=== PATIENT | male | born 1935 | race Caucasian/White ===

== ENCOUNTER 2017-12-26 15:55 | Inpatient (IN) | payer MEDICARE, MEDICAID ==
[~2017-12-26] VITALS: Ht 188 cm; Wt 96.0 kg
[~2017-12-26 15:55] MED LIST: ATENOLOL50 MG PO; COLACE CLEAR50 MG PO; ERIVEDGE150 MG PO; LASIX 20 MG20 MG/TAB PO; LISINOPRIL20 MG PO; MULTI COMPLETE PO; MULTI VIT PO; PAIN RELIEF EX500 MG PO; POLY-IRON150 MG PO; PRILOSEC20 MG/CAP PO; SOD CHLORIDE1 G2 PO; STOOL SOFTENER100 MG PO; TAMSULOSIN0.4 MG PO; TERAZOSIN5 MG PO; TRAMADOL HCL50 MG PO
--- NOTE | 2017-12-26 16:10 | NUR ---
PT & DAUGHTER UNSURE OF INFORMATION TO WHY PT IS HER IN THE ER. PT & DAUGHTER ASKED TO LET STAFF KNOW AFTER RAYNE SPEAKS TO HER SISTER.
--- NOTE | 2017-12-26 16:29 | NUR ---
PT TAKEN TO ER ROOM 6 BY PEREZ, DAUGHTER @ [facility].
--- NOTE | 2017-12-26 17:00 | NUR ---
PT ALERT TO PERSON AND PLACE AT THIS TIME.
--- NOTE | 2017-12-26 17:20 | NUR ---
URINE SAMPLE PROVIDED AND PT AND DAUGHTER AWARE OF PLAN OF CARE AND WAIT TIME. CALL SANCHES WITHIN REACH, WILL CONTINUE TO MONITOR.
--- NOTE | 2017-12-26 17:42 | NUR ---
IV FLUIDS INFUSING AND PT RESTING COMFORTABLY IN STRETCHER AND DENIES ANY NEEDS AT THIS TIME. CALL SANCHES WITHIN REACH.
[2017-12-26 17:47] LABS: HEMATOCRIT 39.1 % (39.0-50.0); HEMOGLOBIN 13.8 g/dl (14.0-18.0); IMMATURE GRANULOCYTES 0.6 % (0.0-1.0); MEAN CELL VOLUME 88.3 fL CALC (80.0-100.0); MEAN CORPUSCULAR HGB 31.2 pG CALC (26.0-32.0); MEAN CORPUSCULAR HGB CONC 35.3 g/L CALC (32.0-36.0); NEUT# 4.9 thou/uL (1.82-7.42); RED BLOOD COUNT 4.43 mill/uL (4.70-6.10); RED CELL DISTRI WIDTH 12.8 % (11.5-15.5)
[2017-12-26] MEDS ORDERED: VITAMIN B121000 MCG PO (17:55)
[2017-12-26] MEDS ORDERED: SODIUM BICARBI650 MG PO ×2 (17:55→17:58)
[2017-12-26 18:03] LABS: URINE BILIRUBIN - DIPSTICK NEGATIVE (NEGATIVE); URINE BLOOD DIPSTICK NEGATIVE (NEGATIVE); URINE COLOR YELLOW; URINE GLUCOSE - DIPSTICK NEGATIVE (NEGATIVE); URINE KETONE NEGATIVE (NEGATIVE); URINE LEUK ESTERASE NEGATIVE (NEGATIVE); URINE NITRITE - DIPSTICK NEGATIVE (Negative); URINE PH 6.5 (4.5-8.0); URINE PROTEIN - DIPSTICK NEGATIVE (NEG-TRACE); URINE SPECIFIC GRAVITY <=1.005; URINE UROBILINOGEN - DIPSTICK 0.2 E.U./dL (0.2)
[2017-12-26 18:07] LABS: ALKALINE PHOSPHATASE 66 u/l (38-126); BILIRUBIN, TOTAL 0.4 mg/dL (0.0-1.4); BUN 9 mg/dL (8-23); BUN/CREATININE RATIO 10 (12-20 (CALC)); CARBON DIOXIDE 27 mmol/l (22-30); CHLORIDE 86 mmol/l (95-108); GFR > 60 ML/MIN (>=60 (CALC)); GFR FOR AFR.AMER. > 60 ML/MIN (>=60 (CALC)); POTASSIUM 4.3 mmol/l (3.5-5.1); SGOT/AST 31 u/l (19-48); SGPT/ALT 36 u/l (11-66); TOTAL PROTEIN 6.4 g/dL (6.3-8.2)
[2017-12-26 18:09] LABS: ANION GAP 16 (6-22 (CALC)); SODIUM 125 mmol/l (137-146)
--- NOTE | 2017-12-26 18:25 | NUR ---
MD AT BEDSIDE TO DISCUSS RESULTS AND PLAN FOR ADMISSION.
[2017-12-26 18:42] LABS: URINE CLARITY CLEAR
--- NOTE | 2017-12-26 19:06 | NUR ---
REPORT CALLED TO OLEKSANDR ORTEZ. PT ROOM IS NOT READY AT THIS TIME, MS WILL CALL WHEN ROOM IS READY.
--- NOTE | 2017-12-26 19:07 | NUR ---
REPORT FOR TRANSFER GIVEN TO LUIS A, RN
[2017-12-26 19:50] VITALS: BP 167/74
--- NOTE | 2017-12-26 19:55 | NUR ---
PT.ARRIVED TO FLOOR VIA STRETCHER ACCOMPANIED BY AG OF ED. PT.SETTLED INTO BED AND ORIENTED TO CALL SYSTEM, LIGHTS, TV, ROOM AND V/S BEING ASSESSED AT THIS TIME.
[2017-12-26 20:50] VITALS: BP 149/59
[2017-12-26 22:57] LABS: ANION GAP 16 (6-22 (CALC)); BUN 8 mg/dL (8-23); BUN/CREATININE RATIO 9 (12-20 (CALC)); CARBON DIOXIDE 25 mmol/l (22-30); CHLORIDE 93 mmol/l (95-108); CREATININE 0.9 mg/dL (0.7-1.3); GFR > 60 ML/MIN (>=60 (CALC)); GFR FOR AFR.AMER. > 60 ML/MIN (>=60 (CALC)); POTASSIUM 3.8 mmol/l (3.5-5.1); SODIUM 130 mmol/l (137-146)
[2017-12-27] VITALS: BP 144/69
--- NOTE | 2017-12-27 | NUR ---
V/S ASSESSED AND URINAL EMPTIED OF 200CC OF CLEAR YELLOW URINE. PT.DENIES ANY NEEDS AND ANSWERS QUESTIONS APPROPRIATELY. ASSISTED PT.IN REPOSITIONING. CALL LIGHT IS W/IN REACH AND BED ALARM IS ON. I ENCOURAGED PT.TO CALL IF ANY NEEDS ARISE.
--- NOTE | 2017-12-27 04:08 | NUR ---
V/S ASSESSED AND URINAL EMPTIED OF 200CC OF CLEAR YELLOW URINE. PT.IS AWAKE UPON ENTERING ROOM, BUT REPORTS WANTING TO TRY AND GO BACK TO SLEEP. CALL LIGHT IS AT SIDE AND BED ALARM ON
[2017-12-27 04:35] VITALS: BP 133/68
[2017-12-27 05:31] LABS: HEMATOCRIT 38.7 % (39.0-50.0); HEMOGLOBIN 13.4 g/dl (14.0-18.0); MEAN CELL VOLUME 89.4 fL CALC (80.0-100.0); MEAN CORPUSCULAR HGB 30.9 pG CALC (26.0-32.0); MEAN CORPUSCULAR HGB CONC 34.6 g/L CALC (32.0-36.0); RED BLOOD COUNT 4.33 mill/uL (4.70-6.10); RED CELL DISTRI WIDTH 12.8 % (11.5-15.5)
[2017-12-27 05:41] LABS: ANION GAP 16 (6-22 (CALC)); BUN 10 mg/dL (8-23); BUN/CREATININE RATIO 11 (12-20 (CALC)); CARBON DIOXIDE 24 mmol/l (22-30); CHLORIDE 95 mmol/l (95-108); CREATININE 0.9 mg/dL (0.7-1.3); GFR > 60 ML/MIN (>=60 (CALC)); GFR FOR AFR.AMER. > 60 ML/MIN (>=60 (CALC)); MAGNESIUM 1.8 mg/dL (1.6-2.3); POTASSIUM 4.2 mmol/l (3.5-5.1); SODIUM 130 mmol/l (137-146)
[2017-12-27 08:00] VITALS: BP 138/66
--- NOTE | 2017-12-27 08:00 | NUR ---
RECEIVED PT IN HIGH FOWLERS POSITION, ALERT,BREATH SOUNDS ARE CLEAR, BILATERALLY, NO C/O SOB, HR IS REG, PULSES ARE STRONG X4,ABD IS SOFT WITH ACTIVE BS. IV SITE IS FREE FROM REDNESS OR EDEMA. TELE MONITOR IN PLACE.
[2017-12-27 12:00] VITALS: BP 96/53
--- NOTE | 2017-12-27 12:45 | NUR ---
PT IS RESTING IN BED WITH NO DISTRESS NOTED. IV SITE IS FREE FROM REDNESS OR EDEMA.
[2017-12-27 15:25] VITALS: BP 128/73
--- NOTE | 2017-12-27 16:30 | NUR ---
PT IS RELAXING IN BED WITH NO DISTRESS NOTED. IV SITE IS FREE FROM REDNESS OR EDEMA.
--- NOTE | 2017-12-27 19:10 | NUR ---
REPORT RECIEVED; PT RESTING IN SEMI-FOWLERS POSITION. PT DENIES PAIN OR DISCOMFORT. BED ALARM IN PLACE FOR SAFETY. PT ENCOURAGED TO CALL FOR ASSISTANCE. SAFETY PRECAUTIONS REINFORCED. CALL LIGHT WITHIN REACH. FREQUENT ROUNDS MADE.
[2017-12-27 19:40] VITALS: BP 108/72
--- NOTE | 2017-12-27 20:10 | NUR ---
PT ALERT TO PERSON AND PLACE. PT DENIES PAIN OR DISCOMFORT. RESP EVEN AND UNLABORED. TELE IN PLACE. ABD DIST, SOFT; ACTIVE BOWEL SOUNDS NOTED. PEDAL PULSES PALPATED BILAT. IV RFA PATENT; FLUSHED WITHOUT DIFFICULTY. SAFETY PRECAUTIONS REINFORCED; WILL CONTINUE TO MONITOR CLOSELY. BED ALARM IN PLACE FOR SAFETY. CALL LIGHT WITHIN REACH.
--- NOTE | 2017-12-27 23:54 | NUR ---
RESP EVEN AND UNLABORED; PT DENIES PAIN OR DISCOMFORT. TELE IN PLACE. FREQUENT ROUNDS MADE. CALL LIGHT WITHIN REACH.
[2017-12-28 02:00] VITALS: BP 145/79
--- NOTE | 2017-12-28 02:15 | NUR ---
PT DENIES PAIN OR DISCOMFORT. RESP EVEN AND UNLABORED. TELE IN PLACE. CALL LIGHT WITHIN REACH.
[2017-12-28 03:50] VITALS: BP 156/79
--- NOTE | 2017-12-28 04:00 | NUR ---
ASSESSMENT UNCHANGED; TELE IN PLACE. RESP EVEN AND UNLABORED. CALL LIGHT WITHIN REACH.
[2017-12-28 06:00] LABS: HEMATOCRIT 38.8 % (39.0-50.0); HEMOGLOBIN 13.3 g/dl (14.0-18.0); IMMATURE GRANULOCYTES 0.7 % (0.0-1.0); MEAN CELL VOLUME 90.4 fL CALC (80.0-100.0); MEAN CORPUSCULAR HGB CONC 34.3 g/L CALC (32.0-36.0); NEUT# 4.51 thou/uL (1.82-7.42); RED BLOOD COUNT 4.29 mill/uL (4.70-6.10); RED CELL DISTRI WIDTH 13.1 % (11.5-15.5)
[2017-12-28 06:04] LABS: ANION GAP 15 (6-22 (CALC)); BUN 9 mg/dL (8-23); BUN/CREATININE RATIO 9 (12-20 (CALC)); CARBON DIOXIDE 27 mmol/l (22-30); CHLORIDE 93 mmol/l (95-108); GFR > 60 ML/MIN (>=60 (CALC)); GFR FOR AFR.AMER. > 60 ML/MIN (>=60 (CALC)); MAGNESIUM 1.8 mg/dL (1.6-2.3); POTASSIUM 4.1 mmol/l (3.5-5.1); SODIUM 131 mmol/l (137-146)
[2017-12-28 09:10] VITALS: BP 133/60
--- NOTE | 2017-12-28 09:10 | NUR ---
PT IS RELAXING IN BED WITH NO DISTRESS NOTED. IV SITE IS FREE FROM REDNESS OR EDEMA. HR IS REG, PULSES ARE STRONG X4. ABD IS SOFT WITH ACTIVE BS, TELE MONITOR IN PLACE/
[2017-12-28 12:15] VITALS: BP 148/79
--- NOTE | 2017-12-28 12:30 | NUR ---
PT IS RELAXING IN BED HAS BEEN TALKING WITH THE STAFF RE; THE BED ALARM ON THE BED, IV SITE IS FREE FROM REDNESS OR EDEMA CONTINEU TO OSEBRVE AND MONITOR.
[2017-12-28 16:00] VITALS: BP 169/82
--- NOTE | 2017-12-28 16:45 | NUR ---
PT HAS BEEN RELAXING IN THE BED WITH NO DISTRESS NOTED IV SITE IS FREE FROM REDNESS OR EDEMA.
[2017-12-28 19:15] VITALS: BP 157/81
--- NOTE | 2017-12-28 19:15 | NUR ---
PATIENT FOUND WITH LEGS OUT OF THE BED-ASSISTED BACK TO THE BED. REINFORCED SAFETY PRECAUTIONS AND BED ALARM ON. CALL LIGHT IN REACH. WILL CONT TO MONITOR.
--- NOTE | 2017-12-28 21:00 | NUR ---
PATIENT RESTING IN BED AT THIS TIME WITH NO COMPLAINTS-ALERT AND ORIENTED BUT DIFFICULT TO UNDERSTAND DUE TO GARBLED SPEECH. MEDICATED WITH HS MEDS ORDERED. TELE MONITORING DEVICE IN PLACE. HEP LOCK TO RIGHT FOREARM INTACT-APPEARS HEALTHY AT THIS TIME. SAFETY PRECAUTIONS REINFORCED.CALL LIGHT IN REACH. WILL CONT TO MONITOR.
--- NOTE | 2017-12-29 00:30 | NUR ---
APPEARS SLEEPING IN BED AT THIS TIME WITH EYES CLOSED. BED ALARM IN PLACE FOR PATIENT SAFETY. CALL LIGHT IN REACH. WILL CONT TO MONITOR.
[2017-12-29 01:00] VITALS: BP 158/82
--- NOTE | 2017-12-29 03:52 | NUR ---
APPEARS SLEEPING AT THIS TIME WITH EYES CLOSED. BED ALARM IN PLACE FOR PATIENT SAFETY. CALL LIGHT IN REACH. WILL CONT TO MONITOR.
[2017-12-29 04:45] VITALS: BP 161/82
[2017-12-29 05:42] LABS: ANION GAP 17 (6-22 (CALC)); BUN 10 mg/dL (8-23); BUN/CREATININE RATIO 12 (12-20 (CALC)); CARBON DIOXIDE 25 mmol/l (22-30); CHLORIDE 93 mmol/l (95-108); CREATININE 0.9 mg/dL (0.7-1.3); GFR > 60 ML/MIN (>=60 (CALC)); GFR FOR AFR.AMER. > 60 ML/MIN (>=60 (CALC)); POTASSIUM 4.4 mmol/l (3.5-5.1); SODIUM 130 mmol/l (137-146)
--- NOTE | 2017-12-29 07:08 | NUR ---
REPORT RECEIVED FROM OLEKSANDR FLANNERY. PT SUPINE IN BED. SLEEPING. CALL LIGHT WITHIN REACH. BED ALARM SET FOR SAFETY.
--- NOTE | 2017-12-29 07:22 | NUR ---
BED ALARM SET OFF. PT ATTEMPTING TO EXIT BED. NEEDS TO USE URINAL. GRIEF COUNSELLOR ASSISTED WITH CARE. FALL PRECAUTIONS AND REPORTING OF NEEDS REINFORCED.
[2017-12-29 08:09] VITALS: BP 159/73
--- NOTE | 2017-12-29 09:34 | NUR ---
PT SITTING IN CHAIR AT BEDSIDE. BED ALARM ATTACHED TO GOWN FOR SAFETY. DENIES PAIN OR COMPLAINTS. PLAN OF CARE DISCUSSED. FALL PRECAUTIONS REINFORCED. CALL LIGHT REVIEWED AND IN REACH. PT STATES UNDERSTANDING.
[2017-12-29 12:00] VITALS: BP 148/69
[2017-12-29 12:04] LABS: HEMATOCRIT 42.3 % (39.0-50.0); HEMOGLOBIN 14.4 g/dl (14.0-18.0); MEAN CELL VOLUME 90.6 fL CALC (80.0-100.0); MEAN CORPUSCULAR HGB 30.8 pG CALC (26.0-32.0); RED BLOOD COUNT 4.67 mill/uL (4.70-6.10); RED CELL DISTRI WIDTH 13.3 % (11.5-15.5)
--- NOTE | 2017-12-29 12:30 | NUR ---
PT SET OFF BED ALARM. CONFUSED TO SITUATION, PLACE AND TIME. ASSISTED WITH URINAL. BED ALARM ON FOR SAFETY.
[2017-12-29 15:00] VITALS: BP 147/82
--- NOTE | 2017-12-29 17:13 | NUR ---
BED ALARM SET OFF BY PT. PT ASSISTED TO CHAIR AT BEDSIDE. SET UP FOR DINNER TRAY. BED ALARM ATTACHED TO GOWN FOR SAFETY.
[2017-12-29 18:34] VITALS: BP 130/72
--- NOTE | 2017-12-29 19:00 | NUR ---
RECEIVED CHANGE OF SHIFT REPORT FROM OLEKSANDR RIZZO. PATIENT ALERT BUT CONFUSED AND LYING IN BED AT THIS TIME. NO VOICED COMPLAINTS. WILL CONTINUE TO MONITOR.
[2017-12-30] VITALS: BP 161/57
--- NOTE | 2017-12-30 | NUR ---
PATIENT AWAKE AND SEEMS RESTLESS. ATTEMPTING TO GET OOB. BED AND PERSONAL ALARM ACTIVATED. WILL CONTINUE TO MONITOR.
[2017-12-30 04:00] VITALS: BP 138/80
--- NOTE | 2017-12-30 04:47 | NUR ---
PATIENT SLEPT ON AND OFF DURING THE NIGHT. ASSISTED TO BATHROOM X 3. NO APPARENT ACUTE CHANGES NOTED IN PT'S CONDITION. ALERT AND ORIENTED TO SAMANTA.
[2017-12-30 05:05] LABS: HEMOGLOBIN 14.5 g/dl (14.0-18.0); IMMATURE GRANULOCYTES 0.5 % (0.0-1.0); MEAN CELL VOLUME 88.9 fL CALC (80.0-100.0); MEAN CORPUSCULAR HGB 31.5 pG CALC (26.0-32.0); MEAN CORPUSCULAR HGB CONC 35.4 g/L CALC (32.0-36.0); NEUT# 5.09 thou/uL (1.82-7.42); RED BLOOD COUNT 4.61 mill/uL (4.70-6.10); RED CELL DISTRI WIDTH 12.9 % (11.5-15.5)
--- NOTE | 2017-12-30 07:56 | NUR ---
PT WAS RESTING WITH EYES CLOSED. IV SITE IS FREE FROM REDNESS OR EDEMA.
[2017-12-30 08:50] VITALS: BP 121/63
--- NOTE | 2017-12-30 08:50 | NUR ---
PT IS SITTING ON THE SIDE OF THE BED, WITH MO DISTRESS NOTED IV SITE IS FREE FROM REDNESS OR EDEMA. HR IS REG, PULSES ARE STRONG X4,ABD IS SOFT WITH ACTIVE BS TELE MONITOR IN PLACE. CONTINUE TO OBSERVE AND MONITOR.
--- NOTE | 2017-12-30 09:05 | NUR ---
PT AMBULATED TO THE BATHROOM , COMPLETED THEN WENT BACK TO BED. TALKING ABOUT HIS AND SAIGE SPEAKING TO HIM.
[2017-12-30 11:45] VITALS: BP 109/65
--- NOTE | 2017-12-30 12:11 | NUR ---
PT HAS BEEN RESTING IN BED WITH MO DISTRESS NOTED. IV SITE IS FREE FROM REDNESS OR EDEMA.
[2017-12-30 14:19] LABS: ANION GAP 17 (6-22 (CALC)); BUN 11 mg/dL (8-23); BUN/CREATININE RATIO 13 (12-20 (CALC)); CARBON DIOXIDE 23 mmol/l (22-30); CHLORIDE 93 mmol/l (95-108); CREATININE 0.9 mg/dL (0.7-1.3); GFR > 60 ML/MIN (>=60 (CALC)); GFR FOR AFR.AMER. > 60 ML/MIN (>=60 (CALC)); POTASSIUM 4.3 mmol/l (3.5-5.1); SODIUM 128 mmol/l (137-146)
--- NOTE | 2017-12-30 16:30 | NUR ---
IV SITE HAS HAD IV FLUIDS ADDED TO THE ORDER/. LABS CAME BACK WITH LOWER NA IN BLOOD. CONTINUE TO OBSERVE AMD MONITOR.
[2017-12-30 16:33] VITALS: BP 112/70
[2017-12-30 19:00] VITALS: BP 138/72
--- NOTE | 2017-12-30 19:50 | NUR ---
REPORT RECIEVED; PT RESTING IN SEMI-FOWLERS POSITION. PT DENIES PAIN OR DISCOMFORT. PT ENCOURAGED TO CALL FOR ASSISTANCE. BED ALARM IN PLACE FOR SAFETY. FREQUENT ROUNDS MADE. IV PATENT; NO REDNESS OR EDEMA. CALL LIGHT WITHIH REACH.
--- NOTE | 2017-12-30 21:40 | NUR ---
PT WOKE FOR ASSESSMENT. RESP EVEN AND UNLABORED; NO DISCOMFORT NOTED. PT ALERT TO PERSON. WILL REORIENT NEEDED. TELE IN PLACE. ABD SOFT; ACTIVE BOWEL SOUNDS NOTED. PEDAL PULSES PALPATED BILAT. PT X2 PERSON ASSIST; PULLED UP IN BED FOR COMFORT. IV RFA PATENT; NO REDNESS OR EDEMA NOTED. BED ALARM IN PLACE FOR SAFETY. CALL LIGHT WITHIN REACH.
[2017-12-31] VITALS: BP 142/76
--- NOTE | 2017-12-31 00:35 | NUR ---
RESP EVEN AND UNLABORED; PT DENIES PAIN OR DISCOMFORT. IV PATENT; NO REDNESS OR EDEMA NOTED. TELE IN PLACE. CALL LIGHT WITHIN REACH.
--- NOTE | 2017-12-31 04:17 | NUR ---
ASSESSMENT UNCHANGED. RESP EVEN AND UNLABORED; NO DISCOMFORT NOTED. TELE IN PLACE. BED ALARM IN PLACE FOR SAFETY. CALL LIGHT WITHIN REACH.
[2017-12-31 04:38] VITALS: BP 140/74
[2017-12-31 05:25] LABS: HEMOGLOBIN 13.9 g/dl (14.0-18.0); IMMATURE GRANULOCYTES 0.4 % (0.0-1.0); MEAN CELL VOLUME 90.3 fL CALC (80.0-100.0); MEAN CORPUSCULAR HGB 30.6 pG CALC (26.0-32.0); MEAN CORPUSCULAR HGB CONC 33.9 g/L CALC (32.0-36.0); NEUT# 4.11 thou/uL (1.82-7.42); RED BLOOD COUNT 4.54 mill/uL (4.70-6.10); RED CELL DISTRI WIDTH 13.1 % (11.5-15.5)
[2017-12-31 05:57] LABS: ANION GAP 15 (6-22 (CALC)); BUN 12 mg/dL (8-23); BUN/CREATININE RATIO 13 (12-20 (CALC)); CARBON DIOXIDE 24 mmol/l (22-30); CHLORIDE 95 mmol/l (95-108); CREATININE 0.9 mg/dL (0.7-1.3); GFR > 60 ML/MIN (>=60 (CALC)); GFR FOR AFR.AMER. > 60 ML/MIN (>=60 (CALC)); MAGNESIUM 1.8 mg/dL (1.6-2.3); POTASSIUM 4.5 mmol/l (3.5-5.1); SODIUM 130 mmol/l (137-146)
--- NOTE | 2017-12-31 09:40 | NUR ---
PT IS RELAXING IN BED WITH NO DISTRESS NOTED. IV SITE IS FREE FROM REDNESS OR EDEMA. HR IS REG,PULSES ARE STRONG X4, ABD IS SOFT WITH ACTIVE BS . BREATH SOUNDS ARE CLEAR,BILATERALLY, CONTINUE TO OBSERVE AND MONITOR.
[2017-12-31 12:00] VITALS: BP 134/58
--- NOTE | 2017-12-31 12:35 | NUR ---
PT HAS BEEN IN THE CHAIR AND ON THE SIDE OF THE BED WITH NO DISTRESS NOTED. IV SITE IS FREE FROM REDNESS OR EDEMA. CONTINUE TO OSBERVE AND MONITOR.
[2017-12-31] MEDS ORDERED: SODIUM BICARBI650 MG PO (14:37)
[2017-12-31] MEDS ORDERED: LASIX 20 MG TAB20 MG PO (14:37)
[2017-12-31 16:00] VITALS: BP 119/40
--- NOTE | 2017-12-31 16:39 | NUR ---
SPOKE WITH RIYA LEGGETT AT [facility]& GAVE A REPORT PLAN IS FOR PT TO BE PICKED UP AND TRANSPORTED AT AROUND 1700.
--- NOTE | 2017-12-31 17:00 | NUR ---
TRANSPORT CAME TO [facility] TECHNICIAN PT. IV SITE DISCONTINUED. CATHETER INTACT. NO REDNESS OR EDEMA. DISCHARGE INSTRUCTIONS GIVEN TO FLEET OPERATIONS MANAGER. Discharge instructions given. Patient verbalizes understanding of same. Discharged in stable condition via Wheelchair to Home with family. All belongings sent with pt.
== END 2017-12-31 17:02 | DRG 645 ==
LOC: ED 15:55 → ED-I 16:46 → ED 18:24 → MS2 18:25
PROVIDERS: Emergency Medicine; Internal Medicine; Nurse Practitioner Family; ADMIT Internal Medicine; ATTEND Internal Medicine
DX: E22.2 Syndrome of inappropriate secretion of antidiuretic hormone (principal); E87.5 Hyperkalemia; D63.8 Anemia in other chronic diseases classified elsewhere; F03.90 Unspecified dementia, unspecified severity, without behavioral disturbance, psychotic disturbance, mood disturbance, and anxiety; I10 Essential (primary) hypertension; F17.220 Nicotine dependence, chewing tobacco, uncomplicated